=== PATIENT | female | born 1990 ===

== ENCOUNTER 2018-08-04 18:38 | Emergency (ER) ==
[~2018-08-04] VITALS: Ht 157.5 cm; Wt 53.2 kg
[2018-08-04] MEDS ORDERED: NORCO 325 MG-51 TAB PO (19:08)
[2018-08-04] MEDS ORDERED: AMOXICILLIN 8751 TAB PO (19:08)
== END 2018-08-04 19:20 | disposition home or self-care (01) ==
LOC: COL.ER 18:38
DX: K02.9 Dental caries, unspecified (principal)